=== PATIENT | male | born 1985 | race Hispanic/Latino ===

== ENCOUNTER 2018-01-31 14:02 | Emergency (ER) | payer MEDICAID, OTHER ==
[2018-01-31] MEDS ORDERED: ONDANSETRON HCL 4 MG/2 ML VIAL ONE ×2 (14:29→15:59)
[2018-01-31] MEDS ORDERED: HYOSCYAMINE SULFATE 0.125 MG TAB.SUBL SL ONE (14:29)
[2018-01-31] MEDS ORDERED: SODIUM CHLORIDE 0.9% 1000ML 1,000 ML IV ONE (14:30)
[2018-01-31 14:36] LABS: APPEARANCE,URINE Clear (CLEAR); BILIRUBIN,URINE Negative (NEGATIVE); COLOR,URINE Dark Yellow (YELLOW); GLUCOSE, URINE (UA) Negative (NEGATIVE); KETONES,URINE 15 mg/dL (NEGATIVE); LEUKOCYTE ESTERASE ,URINE Trace (NEGATIVE); NITRATE,URINE Negative (NEGATIVE); OCCULT BLOOD,URINE Negative (NEGATIVE); PROTEIN,URINE Negative (NEGATIVE); UROBILINOGEN,URINE 0.2 mg/dL (0.2-1.0)
[2018-01-31 14:42] LABS: BASOPHILS % (AUTO) 0.4 % (0.0-5.0); EOSINOPHILS % (AUTO) 1.5 % (0.0-8.0); HEMATOCRIT 49.8 % (42-54); LYMPHOCYTES % (AUTO) 25.3 % (21.0-51.0); MEAN CORPUSCULAR HEMOGLOBIN 30.4 pg (27.0-33.0); MEAN CORPUSCULAR HGB CONC 34.4 g/dL (32.0-36.0); MEAN CORPUSCULAR VOLUME 88.5 fL (79-99); MONOCYTES % (AUTO) 6.6 % (3.0-13.0); NEUTROPHILS % (AUTO) 66.2 % (40.0-77.0); PLATELET COUNT (AUTO) 313 K/uL (130-400); RED BLOOD CELL COUNT(AUTO) 5.63 MIL/uL (4.50-6.20); WHITE BLOOD COUNT (AUTO) 10.1 K/uL (4.8-10.8)
[2018-01-31 14:47] LABS: BACTERIA,URINE None Seen /HPF (None Seen); MUCUS,URINE Moderate LPF (None Seen); RBC,URINE None Seen /HPF (0-1); WBC,URINE 0-1 /HPF (0-1)
[2018-01-31 14:51] LABS: ALBUMIN 4.7 g/dL (3.5-5.0); BILIRUBIN,TOTAL 0.7 mg/dL (0.2-1.0); TOTAL PROTEIN, SERUM 8.6 g/dL (6.0-8.3)
[2018-01-31 15:51] LABS: AMPHET/METH SCREEN,URINE NEGATIVE (NEGATIVE); BARBITURATE SCREEN, URINE NEGATIVE (NEGATIVE); BENZODIAZEPINES SCREEN,URINE NEGATIVE (NEGATIVE); CANNABINOID SCREEN,URINE POSITIVE (NEGATIVE); COCAINE SCREEN,URINE NEGATIVE (NEGATIVE); OPIATE SCREEN,URINE NEGATIVE (NEGATIVE); PHENCYCLIDINE SCREEN,URINE NEGATIVE (NEGATIVE)
[2018-01-31] MEDS ORDERED: KETOROLAC TROMETHAMINE 30MG/ML ONE (16:00)
== END 2018-01-31 18:19 | disposition home or self-care (01) ==
LOC: EDH 14:02
DX: R10.30 Lower abdominal pain, unspecified (principal); R11.10 Vomiting, unspecified; M79.1 Myalgia; H91.90 Unspecified hearing loss, unspecified ear; Z98.890 Other specified postprocedural states
CPT/HCPCS: 36415; 74176; 80053; 80305; 81001; 83690; 85025; 96361; 96374; 96375; 96376; 99285; J1885; J2405 ×2; J7030

== ENCOUNTER 2018-02-01 01:37 | Observation (INO) | payer MEDICAID ==
[2018-02-01] VITALS (23 sets, daily range): BP systolic 113–145; BP diastolic 52–86
[~2018-02-01] VITALS: Ht 175.3 cm; Wt 65.8 kg
[2018-02-01] MEDS ORDERED: KETOROLAC TROMETHAMINE 30MG/ML ONE (02:17)
[2018-02-01] MEDS ORDERED: ONDANSETRON HCL 4 MG/2 ML VIAL ONE ×2 (02:17→11:26)
[2018-02-01] MEDS ORDERED: SODIUM CHLORIDE 0.9% 1000ML 1,000 ML IV ONE ×2 (02:17→07:27)
[2018-02-01 02:34] LABS: BASOPHILS % (AUTO) 0.3 % (0.0-5.0); EOSINOPHILS % (AUTO) 0.4 % (0.0-8.0); HEMATOCRIT 42.2 % (42-54); LYMPHOCYTES % (AUTO) 28.8 % (21.0-51.0); MEAN CORPUSCULAR HEMOGLOBIN 30.4 pg (27.0-33.0); MEAN CORPUSCULAR HGB CONC 34.2 g/dL (32.0-36.0); MEAN CORPUSCULAR VOLUME 88.8 fL (79-99); MONOCYTES % (AUTO) 7.9 % (3.0-13.0); NEUTROPHILS % (AUTO) 62.6 % (40.0-77.0); PLATELET COUNT (AUTO) 277 K/uL (130-400); RED BLOOD CELL COUNT(AUTO) 4.76 MIL/uL (4.50-6.20); RED CELL DISTRIBUTION WIDTH 12.7 % (11.0-15.5); WHITE BLOOD COUNT (AUTO) 12.2 K/uL (4.8-10.8)
[2018-02-01 02:46] LABS: CARBON DIOXIDE 28 mmol/L (21-32); CHLORIDE 104 mmol/L (101-111); CREATININE 0.9 mg/dL (0.5-1.5); GLOMERULAR FILTR. RATE CALC 105 mL/min (>60); GLUCOSE,RANDOM 108 mg/dL (70-105); POTASSIUM 4.4 mmol/L (3.5-5.1); SODIUM SERUM 141 mmol/L (136-145); UREA NITROGEN, BLOOD 11 mg/dL (7-18)
[2018-02-01 02:48] LABS: INR 1.06 (0.85-1.15); PARTIAL THROMBOPLASTIN TIME 28.2 SEC (26.3-35.5); PROTHROMBIN TIME 11.1 SEC (9.6-11.6)
[2018-02-01 02:51] LABS: ALANINE AMINOTRANSFERASE 33 U/L (12-78); ALBUMIN 3.8 g/dL (3.5-5.0); ASPARTATE AMINOTRANSFERASE 30 U/L (10-37); BILIRUBIN,DIRECT 0.1 mg/dL (0.0-0.3); BILIRUBIN,TOTAL 0.5 mg/dL (0.2-1.0); LIPASE 76 U/L (114-286); TOTAL PROTEIN, SERUM 7.2 g/dL (6.0-8.3)
[2018-02-01 02:55] LABS: ALCOHOL, BLOOD < 3 mg/dL (0-10)
[2018-02-01] MEDS ORDERED: DICYCLOMINE HCL 10 MG/ML 2ML AMP IM ONE (03:57)
[2018-02-01] MEDS ORDERED: PROMETHAZINE HCL 25 MG/ML 1ML AMPULE IM ONE (03:59)
[2018-02-01] MEDS ORDERED: CEFTRIAXONE SODIUM 1 GM ONE (04:00)
[2018-02-01 06:18] LABS: BASOPHILS % (AUTO) 0.3 % (0.0-5.0); EOSINOPHILS % (AUTO) 1.2 % (0.0-8.0); HEMATOCRIT 38.7 % (42-54); LYMPHOCYTES % (AUTO) 36.7 % (21.0-51.0); MEAN CORPUSCULAR HEMOGLOBIN 31.2 pg (27.0-33.0); MEAN CORPUSCULAR VOLUME 89.1 fL (79-99); MONOCYTES % (AUTO) 7.6 % (3.0-13.0); NEUTROPHILS % (AUTO) 54.2 % (40.0-77.0); PLATELET COUNT (AUTO) 267 K/uL (130-400); RED BLOOD CELL COUNT(AUTO) 4.34 MIL/uL (4.50-6.20); RED CELL DISTRIBUTION WIDTH 12.6 % (11.0-15.5); WHITE BLOOD COUNT (AUTO) 11.4 K/uL (4.8-10.8)
[2018-02-01 06:25] LABS: CREATININE 0.7 mg/dL (0.5-1.5); POTASSIUM 3.3 mmol/L (3.5-5.1)
[2018-02-01] MEDS ORDERED: ACETAMINOPHEN 325 MG TAB PO PRN ×2 (08:45→16:15)
[2018-02-01] MEDS ORDERED: ONDANSETRON HCL 4 MG/2 ML VIAL IVP PRN (08:45)
[2018-02-01] MEDS ORDERED: MORPHINE SULFATE 2 MG/ML 1ML SYG IVP PRN (08:45)
[2018-02-01] MEDS ORDERED: SUCCINYLCHOLINE 200MG/10ML SYR ONE (11:26)
[2018-02-01] MEDS ORDERED: ROCURONIUM BROMIDE 10MG/1ML 5ML VL ONE (11:26)
[2018-02-01] MEDS ORDERED: MIDAZOLAM HCL 1 MG/ML 2ML VIAL ONE (11:26)
[2018-02-01] MEDS ORDERED: CALDOLOR 800MG+NS 250ML 250 ML IV ONE (11:42)
[2018-02-01] MEDS ORDERED: GLYCOPYRROLATE 0.2 MG/ML 5 ML VIAL ONE (11:46)
[2018-02-01] MEDS ORDERED: BUPIVACAINE/EPI/PF 0.25% 30ML VIAL IJ ONE (11:46)
[2018-02-01] MEDS ORDERED: NEOSTIGMINE 5MG/5ML SYR IV ONE (11:46)
[2018-02-01] MEDS ORDERED: FENTANYL CITRATE PF 50 MCG/1 ML 2ML VIAL ONE ×2 (11:46)
[2018-02-01] MEDS ORDERED: OCTYL 2-CYANOACRYLATE 1 EACH TP ONE (12:16)
[2018-02-01] MEDS ORDERED: MEPERIDINE-PF 50 MG/ML SYG ONE ×2 (12:31→21:27)
[2018-02-01] MEDS ORDERED: TRAMADOL HCL 50 MG TABLET PO PRN (16:15)
[2018-02-01] MEDS: TRAMADOL HCL 50 MG TABLET PO PRN (16:42)
[2018-02-01] MEDS ORDERED: IBUPROFEN 600 MG TABLET PO PRN (18:45)
[2018-02-01] MEDS ORDERED: MEPERIDINE HCL/PF 25 MG/0.5 ML AMPUL IVP PRN (18:45)
[2018-02-01] MEDS: KETOROLAC TROMETHAMINE 30MG/ML IV SCH (19:07)
[2018-02-01] MEDS: SODIUM CHLORIDE 0.9% 1000ML 1,000 ML IV SCH (21:43)
[2018-02-01] MEDS ORDERED: MEPERIDINE-PF 25 MG/ML SYG ONE (23:49)
[2018-02-02 00:22] VITALS: BP 125/67
[2018-02-02 03:12] VITALS: BP 124/76
[2018-02-02] MEDS ORDERED: MEPERIDINE-PF 25 MG/ML SYG ONE ×2 (03:28→06:40)
[2018-02-02] MEDS: SODIUM CHLORIDE 0.9% 1000ML 1,000 ML IV SCH ×2 (04:45→12:15)
[2018-02-02 07:00] VITALS: BP 121/70
[2018-02-02 11:01] VITALS: BP 127/66
[2018-02-02] MEDS: TRAMADOL HCL 50 MG TABLET PO PRN ×2 (12:22→16:30)
[2018-02-02] MEDS: KETOROLAC TROMETHAMINE 30MG/ML IV SCH (13:43)
[2018-02-02 15:00] VITALS: BP 141/83
== END 2018-02-02 19:20 | disposition home or self-care (01) ==
LOC: EDH 01:37 → INTOOBSV 01:38 → EDHIP 01:38 → 4AH 08:01
PROVIDERS: ADMIT Family Medicine; ATTEND Family Medicine
DX: K35.80 Unspecified acute appendicitis (principal)
CPT/HCPCS: 36415; 44970; 80048 ×2; 80076; 83690; 85025 ×2; 85610; 85730; 88304; 96374; 96375; 99285; A4215; A4344; A4450; A4649 ×6; C1769 ×3; G0378 ×42; G0480; J0330; J0500; J0696; J1741; J1885 ×3; J2175 ×5; J2250; J2405 ×2; J2550; J2710; J3010 ×2; J3490 ×3; J7030 ×4

== ENCOUNTER 2018-02-03 23:10 | Emergency (ER) | payer MEDICAID ==
[2018-02-04 00:04] LABS: BASOPHILS % (AUTO) 0.1 % (0.0-5.0); EOSINOPHILS % (AUTO) 0.5 % (0.0-8.0); HEMATOCRIT 45.2 % (42-54); MEAN CORPUSCULAR HEMOGLOBIN 30.6 pg (27.0-33.0); MEAN CORPUSCULAR HGB CONC 34.5 g/dL (32.0-36.0); MEAN CORPUSCULAR VOLUME 88.8 fL (79-99); MONOCYTES % (AUTO) 6.9 % (3.0-13.0); NEUTROPHILS % (AUTO) 81.5 % (40.0-77.0); PLATELET COUNT (AUTO) 320 K/uL (130-400); RED BLOOD CELL COUNT(AUTO) 5.09 MIL/uL (4.50-6.20); RED CELL DISTRIBUTION WIDTH 12.9 % (11.0-15.5); WHITE BLOOD COUNT (AUTO) 13.7 K/uL (4.8-10.8)
[2018-02-04 00:20] LABS: CREATININE 0.8 mg/dL (0.5-1.5); POTASSIUM 3.3 mmol/L (3.5-5.1)
[2018-02-04 00:22] LABS: ALBUMIN 4.4 g/dL (3.5-5.0); BILIRUBIN,TOTAL 0.6 mg/dL (0.2-1.0); TOTAL PROTEIN, SERUM 8.6 g/dL (6.0-8.3)
[2018-02-04 01:07] LABS: APPEARANCE,URINE Clear (CLEAR); BILIRUBIN,URINE Negative (NEGATIVE); COLOR,URINE Yellow (YELLOW); GLUCOSE, URINE (UA) Negative (NEGATIVE); KETONES,URINE >=160 mg/dL (NEGATIVE); LEUKOCYTE ESTERASE ,URINE Negative (NEGATIVE); NITRATE,URINE Negative (NEGATIVE); OCCULT BLOOD,URINE Large (NEGATIVE); PH,URINE 5.5 (5.0-8.0); PROTEIN,URINE Trace (NEGATIVE)
[2018-02-04 01:14] LABS: AMPHET/METH SCREEN,URINE NEGATIVE (NEGATIVE); BARBITURATE SCREEN, URINE NEGATIVE (NEGATIVE); BENZODIAZEPINES SCREEN,URINE NEGATIVE (NEGATIVE); CANNABINOID SCREEN,URINE POSITIVE (NEGATIVE); COCAINE SCREEN,URINE NEGATIVE (NEGATIVE); OPIATE SCREEN,URINE NEGATIVE (NEGATIVE); PHENCYCLIDINE SCREEN,URINE NEGATIVE (NEGATIVE)
[2018-02-04 01:27] LABS: SALICYLATE 3.3 mg/dL (2.8-20.0)
[2018-02-04 01:27] LABS: BACTERIA,URINE None Seen /HPF (None Seen); MUCUS,URINE Many LPF (None Seen); SQUAMOUS EPITHELIAL CELL,UR Few /LPF (0-2); WBC,URINE 0-1 /HPF (0-1)
[2018-02-04 01:28] LABS: ACETAMINOPHEN < 1 mcg/mL (10-29); ALCOHOL, BLOOD < 3 mg/dL (0-10)
[2018-02-04] MEDS ORDERED: SODIUM CHLORIDE 0.9% 1000ML 1,000 ML IV ONE ×2 (01:55→02:38)
== END 2018-02-04 04:40 | disposition home or self-care (01) ==
LOC: EDH 23:10
DX: R55 Syncope and collapse (principal); E86.0 Dehydration; F43.21 Adjustment disorder with depressed mood; G89.18 Other acute postprocedural pain; R10.9 Unspecified abdominal pain; M79.605 Pain in left leg; H91.3 Deaf nonspeaking, not elsewhere classified; Z90.49 Acquired absence of other specified parts of digestive tract
CPT/HCPCS: 36415; 70450; 71045; 80053; 80305; 81001; 82550; 83690; 84484; 85025; 85378; 93005; 93970; 96360; 99285; G0480 ×2; G0481; J7030 ×2

== ENCOUNTER 2018-05-07 17:09 | Emergency (ER) | payer MEDICAID ==
[2018-05-07] MEDS ORDERED: SODIUM CHLORIDE 0.9% 1000ML 1,000 ML IV ONE (17:38)
[2018-05-07] MEDS ORDERED: ONDANSETRON HCL 4 MG/2 ML VIAL ONE (17:38)
[2018-05-07] MEDS ORDERED: HYOSCYAMINE SULFATE 0.125 MG TAB.SUBL SL ONE (17:38)
[2018-05-07 17:39] LABS: BASOPHILS % (AUTO) 0.3 % (0.0-5.0); EOSINOPHILS % (AUTO) 0.8 % (0.0-8.0); HEMATOCRIT 49.3 % (42-54); LYMPHOCYTES % (AUTO) 18.3 % (21.0-51.0); MEAN CORPUSCULAR HEMOGLOBIN 30.7 pg (27.0-33.0); MEAN CORPUSCULAR HGB CONC 34.6 g/dL (32.0-36.0); MEAN CORPUSCULAR VOLUME 88.6 fL (79-99); MONOCYTES % (AUTO) 5.9 % (3.0-13.0); NEUTROPHILS % (AUTO) 74.7 % (40.0-77.0); PLATELET COUNT (AUTO) 346 K/uL (130-400); RED BLOOD CELL COUNT(AUTO) 5.56 MIL/uL (4.50-6.20); RED CELL DISTRIBUTION WIDTH 12.9 % (11.0-15.5); WHITE BLOOD COUNT (AUTO) 10.5 K/uL (4.8-10.8)
[2018-05-07 17:51] LABS: APPEARANCE,URINE Clear (CLEAR); BILIRUBIN,URINE Negative (NEGATIVE); COLOR,URINE Yellow (YELLOW); GLUCOSE, URINE (UA) Negative (NEGATIVE); KETONES,URINE 15 mg/dL (NEGATIVE); LEUKOCYTE ESTERASE ,URINE Negative (NEGATIVE); NITRATE,URINE Negative (NEGATIVE); OCCULT BLOOD,URINE Nonhemolyzed Trace (NEGATIVE); PH,URINE 7.5 (5.0-8.0); PROTEIN,URINE Negative (NEGATIVE)
[2018-05-07 17:53] LABS: ALBUMIN 4.4 g/dL (3.5-5.0); BILIRUBIN,TOTAL 0.5 mg/dL (0.2-1.0); TOTAL PROTEIN, SERUM 7.4 g/dL (6.0-8.3)
[2018-05-07 17:57] LABS: BACTERIA,URINE Few /HPF (None Seen); WBC,URINE 0-1 /HPF (0-1)
[2018-05-07 17:58] LABS: MUCUS,URINE Rare LPF (None Seen); SQUAMOUS EPITHELIAL CELL,UR Rare /HPF (0-2)
== END 2018-05-07 20:10 | disposition home or self-care (01) ==
LOC: EDH 17:09
DX: K52.9 Noninfective gastroenteritis and colitis, unspecified (principal); R10.84 Generalized abdominal pain; H91.90 Unspecified hearing loss, unspecified ear; Z72.0 Tobacco use
CPT/HCPCS: 36415; 76705; 80053; 81001; 83690; 85025; 96361; 96374; 99285; J2405; J7030

== ENCOUNTER 2018-08-13 16:30 | Emergency (ER) | payer MEDICAID ==
[2018-08-13 16:58] LABS: RAPID GROUP A STREP NEGATIVE (NEGATIVE)
[2018-08-13] MEDS ORDERED: IPRATROPIUM/ALBUTEROL SULFATE 3 ML SOLUTION IH ONE (17:15)
== END 2018-08-13 17:52 | disposition home or self-care (01) ==
LOC: EDH 16:30
DX: J09.X2 Influenza due to identified novel influenza A virus with other respiratory manifestations (principal); J20.9 Acute bronchitis, unspecified; H91.90 Unspecified hearing loss, unspecified ear; Z72.0 Tobacco use
CPT/HCPCS: 71045; 87804; 87880; 93005; 94640